=== PATIENT | female | born 1950 | race Caucasian/White ===

== ENCOUNTER 2019-05-18 07:01 | Emergency (ER) | payer MEDICARE ==
--- NOTE | 2019-05-18 07:49 | CT ---
CT head noncontrast HISTORY: Fall. Headache. Head injury. FINDINGS: There is no evidence of acute intracranial hemorrhage or infarct. The ventricles appear nor mal in size, shape and position. Mild chronic ischemic small vessel disease within the periventricular white matter. There is no mass effect or shift of midline structures. Visualized para nasal sinuses remain well aerated. IMPRESSION: No acute intracranial abnormalities are demonstrated.
--- NOTE | 2019-05-18 07:57 | CT ---
CT cervical spine noncontrast HISTORY: Fall. Neck injury. FINDINGS: There is straightening of the normal lordotic curvature. Minimal chronic appearing depressi on of the T1 vertebral superior endplate. No acute fracture or dislocation are apparent. Decrease in AP depth of the C5 and C6 vertebral bodies is favored to be congenital rather than postoperative i n nature, as there is also partial interbody fusion and partial fusion of the posterior elements. Prominent osteophytosis throughout the vertebral bodies and facets. IMPRESSION: Prominent degenerative changes of the cervical spine. No acute osseous abnormalities are demonstrated.
[2019-05-18] MEDS ORDERED: Lidocaine 1% w/Epinephrine 1:100K 20 ML VIAL ONE (08:06)
[2019-05-18] MEDS ORDERED: Bacitracin 1 PK ONE (08:52)
== END 2019-05-18 09:13 | disposition home or self-care (01) ==
LOC: ERS 07:01
DX: S01.21XA Laceration without foreign body of nose, initial encounter (principal); S61.411A Laceration without foreign body of right hand, initial encounter; S00.12XA Contusion of left eyelid and periocular area, initial encounter; I10 Essential (primary) hypertension; W18.30XA Fall on same level, unspecified, initial encounter
CPT/HCPCS: 12001; 12011; 70450; 72125